=== PATIENT | male | born 1975 | race African-American/Black ===

== ENCOUNTER 2016-09-17 19:45 | Emergency (ER) | payer OTHER ==
--- NOTE | ~2016-09-17 | CT71 ---
[facility] A Service of [facility] RADIOLOGY TEXT RESULTS PATIENT: PEREZ ANGELO LOCATION: [facility] : 79 UNIT #: [id number] AGE: [address]: Rachael Eng MD SEX: M ORDER DR: [id number] [place], [place] [address] [id number] MR#: [id number] #: [id number] NAME: PEREZ ANGELO. : 1975 SEX: M STUDY DATE/TIME: 09/17/2016 20:41 UNIT: ANGELLA ROOM: STUDY DESCRIPTION: CT Head Wo Contrast Attending Physician: Rachael Eng M.D. Ordering Physician: Rachael Eng M.D. Primary Care Physician: Diego Mata M.D. MEDICAL IMAGING REPORT This report is preliminary unless electronic signature is present EXAM CT head without contrast INDICATION Headache for the past 3 weeks with dizziness today. PROCEDURE Unenhanced CT head. This CT exam was performed with one or more of the following radiation dose reduction techniques: automatic exposure control, adjustment of mA and/or kV according to patient size, and iterative reconstruction. COMPARISON None. FINDINGS No acute hemorrhage, abnormal mass effect, extraaxial collection or hydrocephalus. No evidence for acute or early subacute large territory infarct. No depressed calvarial fracture. The paranasal sinuses and mastoid air cells are clear. IMPRESSION No acute intracranial finding. Dictated by... George Matute M.D. THIS IS AN ELECTRONICALLY VERIFIED REPORT George Matute M.D. at 09/18/2016 2:26 PM EED/ljd [facility] A Service of [facility] RADIOLOGY TEXT RESULTS PATIENT: PEREZ ANGELO LOCATION: [facility] : 79 UNIT #: [id number] AGE: [address]: Rachael Eng MD SEX: M ORDER DR: TD: 09/17/2016 23:03 JOB #: [id number] MEDICAL IMAGING REPORT Page 1 of 1 COPY
[~2016-09-17 19:45] MED LIST: ALBUTEROL17 GM INH; BACTRIM DS TABL1 TAB; FLEXERIL PO; FLOXIN OTIC5 M1 AD; HYDROCODON-ACE1 EAC7 PO; KEFLEX; MEDROL PO; NO MEDICATIONS; NORVASC PO; PREDNISONE PO; SYMBICORT INH; VICODIN; VICODIN 5/500 T1 TAB PO
== END 2016-09-17 21:55 | disposition home or self-care (01) ==
LOC: CED 19:45
DX: R51 Headache (principal); I10 Essential (primary) hypertension; F17.200 Nicotine dependence, unspecified, uncomplicated; Z90.49 Acquired absence of other specified parts of digestive tract
CPT/HCPCS: 70450; 99284

== ENCOUNTER 2016-11-17 19:17 | Emergency (ER) | payer OTHER ==
[~2016-11-17] VITALS: Ht 177.8 cm; Wt 79.4 kg
== END 2016-11-17 21:25 | disposition home or self-care (01) ==
LOC: CED 19:17
DX: N34.2 Other urethritis (principal); R51 Headache; I10 Essential (primary) hypertension; J45.909 Unspecified asthma, uncomplicated; Z90.49 Acquired absence of other specified parts of digestive tract; F17.200 Nicotine dependence, unspecified, uncomplicated
CPT/HCPCS: 96372; 99283; J0696

== ENCOUNTER 2016-12-30 14:11 | Emergency (ER) | payer OTHER ==
[~2016-12-30] VITALS: Ht 177.8 cm; Wt 79.4 kg
== END 2016-12-30 17:47 | disposition home or self-care (01) ==
LOC: CED 14:11 → CFTX 14:11
DX: M54.5 Low back pain (principal); I10 Essential (primary) hypertension; J45.909 Unspecified asthma, uncomplicated; F17.210 Nicotine dependence, cigarettes, uncomplicated
CPT/HCPCS: 99283